=== PATIENT | female | born 1940 | race Hispanic/Latino ===

== ENCOUNTER → 2024-08-02 | Outpatient (CLI) | payer MEDICARE ==
--- NOTE | 2024-08-10 13:49 | HMCSR ---
APPROVED REPORT Right Lower Extremity Venous Study for DVT. Indications DVT of Lower Extremity: Vein Imaging CFV (R): Partially Compressible, Recanalized flow. Evidence of chronic DVT. SFJ (R): Partially Compressible, Recanalized flow. Evidence of chronic DVT. FEM (R): Partially Compressible, Recanalized flow. Evidence of chronic DVT. POP (R): Partially Compressible, Recanalized flow. Evidence of chronic DVT. DFV (R): Normal flow, augmentation and compression. No evidence of DVT. PTV (R): Normal flow, augmentation and compression. No evidence of DVT. Peroneals (R): Normal flow, augmentation and compression. No evidence of DVT. CFV (L): Partially Com pressible, Recanalized flow. Evidence of chronic DVT. FEM (L): Partially Compressible, Recanalized flow. Evidence of chronic DVT. Technologist Impression Evidence of chronic DVT in the Right CFV, SFV and Popliteal veins as well as the contralateral CFV an d SFV. Deep veins demonstrate partial compressibility with recanalized flow. Conclusion Evidence of chronic DVT in the Right CFV, SFV and Popliteal veins as well as the contralateral CFV an d SFV. Deep veins demonstrate partial compressibility with recanalized flow. Conclusion Evidence of chronic DVT in the Right CFV, SFV and Popliteal veins as well as the contralateral CFV an d SFV. Deep veins demonstrate partial compressibility with recanalized flow.
== END | disposition home or self-care (01) ==
LOC: SHCH 14:33
PROVIDERS: ATTEND Student in an Organized Health Care Education/Training Program
DX: I82.531 Chronic embolism and thrombosis of right popliteal vein (principal); I82.401 Acute embolism and thrombosis of unspecified deep veins of right lower extremity; I82.411 Acute embolism and thrombosis of right femoral vein; I82.90 Acute embolism and thrombosis of unspecified vein; I10 Essential (primary) hypertension; E78.2 Mixed hyperlipidemia; Z79.899 Other long term (current) drug therapy; Z79.01 Long term (current) use of anticoagulants
CPT/HCPCS: 93971

== ENCOUNTER → 2024-09-07 | Outpatient (CLI) | payer MEDICARE | END | disposition home or self-care (01) | LOC: SHCH 11:19 | PROVIDERS: ATTEND Student in an Organized Health Care Education/Training Program | DX: I73.9 Peripheral vascular disease, unspecified (principal) | CPT/HCPCS: 93925 ==